=== PATIENT | male | born 2005 | race African-American/Black ===

== ENCOUNTER 2024-06-08 12:51 | Emergency (ER) | payer OTHER ==
[~2024-06-08] VITALS: Ht 185.4 cm; Wt 76.0 kg
[2024-06-08 13:15] LABS: EOS # 0.17 K/mm3 (0.04-0.40); HEMATOCRIT 37.4 % (36.0-47.0); HEMOGLOBIN 12.4 g/dL (12.5-16.1); MEAN CELL VOLUME 89 fl (78-95); MEAN CORPUSCULAR HEMOGLOBIN 29 pg (26-32); MEAN CORPUSCULAR HGB CONC 33 g/dL (33-37); MEAN PLATELET VOLUME 9.7 fl (7.4-10.4); NEU # 5.94 K/mm3 (1.40-6.50); PLATELET COUNT 245 K/mm3 (130-400); RED BLOOD COUNT 4.22 M/mm3 (4.20-5.60); RED CELL DISTRIBUTION WIDTH 12.1 % (11.5-14.5); WHITE BLOOD COUNT 8.5 K/mm3 (4.8-10.8)
[2024-06-08 13:22] LABS: ALBUMIN 4.2 g/dL (3.5-5.0)
[2024-06-08 13:23] LABS: CALCIUM 9.1 mg/dL (8.3-10.5)
[2024-06-08 13:24] LABS: TOTAL PROTEIN 6.6 g/dL (6.4-8.3)
[2024-06-08 13:26] LABS: TOTAL BILIRUBIN 0.5 mg/dL (0.2-1.2)
[2024-06-08] MEDS ORDERED: tiZANidine 4 MG TABLET PO ONE (14:15)
[2024-06-08] MEDS ORDERED: Ketorolac 30 MG/ML VIAL IV ONE (14:15)
[2024-06-08] MEDS ORDERED: TIZANIDINE HYDRO4 MG PO (14:24)
[2024-06-08 14:45] VITALS: BP 128/74
== END 2024-06-08 14:45 | disposition home or self-care (01) ==
LOC: ED 12:51
PROVIDERS: Family Medicine
DX: H53.8 Other visual disturbances (principal); R07.89 Other chest pain; J06.9 Acute upper respiratory infection, unspecified; G40.909 Epilepsy, unspecified, not intractable, without status epilepticus; F17.210 Nicotine dependence, cigarettes, uncomplicated
CPT/HCPCS: J1885; J7120